=== PATIENT | female | born 1995 | race Caucasian/White ===

== ENCOUNTER 2024-02-18 21:23 | Outpatient (CLI) | payer OTHER ==
[~2024-02-18] VITALS: Ht 165.1 cm; Wt 56.4 kg
[~2024-02-18 21:23] MED LIST: NATURAL IRON65 MG PO; PRENATAL MVI PO
--- NOTE | 2024-02-18 21:45 | NUR ---
2129: PT ARRIVES VIA WHEELCHAIR, ACCOMPANIED BY STAFF. INSTRUCTED TO CHANGE INTO GOWN. 2139: RN AT THE BEDSIDE, G6 L1, 26.[address] SILVESTRE, HERE FOR CTX THAT HAVE BECOME EVERY 10 MINUTES PER THE PT AT HOME. SHE DOES REPORT SHE HAS BEEN HAVING CTX IRREGULARLY AND THAT COME AND GO OVER THE LAST COUPLE OF WEEKS. SHE IS ALSO HAVING A LOT OF DISCHARGE AND FLUID LEAKING WELL, BUT SHE ONLY NOTICES IT WHEN SHE IS ACTIVE. PT DENIES ANY VAGINAL BLEEDING, REPORTS GOOD MOVEMENT AND DENIES ANY OTHER COMPLICATIONS WITH THIS PREGANCY. PT DOES HAVE A HX OF SROM AND DELIVERY AT 32 WEEKS WITH HER FIRST . SVE CL/TH/HIGH.
[2024-02-18 22:00] VITALS: BP 96/56; PULSE 74; TEMP 97.9
[2024-02-18] MEDS ORDERED: LR 1,000 ML IV PRN (22:15)
[2024-02-18 22:30] VITALS: BP 104/57; PULSE 74
== END 2024-02-18 22:40 | disposition home or self-care (01) ==
LOC: LDRO 21:23
DX: O26.892 Other specified pregnancy related conditions, second trimester (principal); E75.5 Other lipid storage disorders; Z3A.26 26 weeks gestation of pregnancy

== ENCOUNTER 2024-03-01 17:06 | Outpatient (CLI) | payer OTHER ==
[~2024-03-01] VITALS: Ht 157.5 cm; Wt 59.1 kg
--- NOTE | 2024-03-01 17:10 | NUR ---
19/[address] SILVESTRE AMBULATES ONTO UNIT WITH COMPLAINTS OF CONTRACTIONS. PT. STATES THEY STARTED AROUND 11 AM THIS MORNING AND ARE ABOUT EVERY 10 MINUTES APART. PT. DENIES LEAKING OF FLUIDS AND VAGINAL BLEEDING. PT. CONFIRMS MOVEMENT.
[2024-03-01] MEDS ORDERED: LR 1,000 ML IV PRN (17:30)
[2024-03-01 17:45] VITALS: BP 116/75; PULSE 96
[2024-03-01 17:45] LABS: COLLECTION METHOD CLEAN CATCH
[2024-03-01] MEDS ORDERED: Acetaminophen 500 MG TAB PO PRN (17:45)
[2024-03-01 17:51] LABS: PH 6.5 (5.0-8.5); URINE APPEARANCE CLOUDY (CLEAR/HAZY); URINE BLOOD NEGATIVE (NEGATIVE); URINE COLOR YELLOW (YELLOW); URINE GLUCOSE NEGATIVE (NEGATIVE); URINE KETONE NEGATIVE (NEGATIVE); URINE NITRATE NEGATIVE (NEGATIVE); URINE PROTEIN(semi-quant) NEGATIVE (NEGATIVE); URINE UROBILINOGEN 0.2 E.U/dL (0.2-1.0)
[2024-03-01 18:00] VITALS: BP 103/60; PULSE 85; TEMP 98.6
--- NOTE | 2024-03-01 18:10 | NUR ---
1809- RECIEVED REPORT. CARE ASSUMED. 1819- RN AT BESIDE RECHECKED CERVIX, SVE BY [place] FT/50/-3. PT REPORTS CTX FEEL LIKE LIGHT PERIOD CRAMPS. 1840- DR. JONES CALLED, SEE PHYSCIAN NOTIFICATION. 1899- PT GIVEN DISCHARGE INSTRUCTIONS AND VERBALIZED UNDERSTANDING OF INFORMATION. PT AMBULATORY OFF UNIT.
[2024-03-01 18:30] VITALS: BP 103/61; PULSE 90; TEMP 98.6
[2024-03-01 18:42] VITALS: BP 101/61; PULSE 86
== END 2024-03-01 19:00 | disposition home or self-care (01) ==
LOC: LDRO 17:06
PROVIDERS: Obstetrics & Gynecology
DX: O62.9 Abnormality of forces of labor, unspecified (principal); Z3A.27 27 weeks gestation of pregnancy

== ENCOUNTER 2024-04-08 22:08 | Outpatient (CLI) | payer OTHER ==
[~2024-04-08] VITALS: Ht 160 cm; Wt 56.8 kg
--- NOTE | 2024-04-08 22:25 | NUR ---
G6L1 at 33 weeks and 1 day arrives to hospital with complaint of stronger contractions for the last 2 hours. Pt reports history of PPROM with delivery at 32 weeks and has been having contractions off and on with the . Has already received betamethasone and has been dilated to a 1 for about 1 month. Pt denies any leakage of fluid. Reports good movement and denies vaginal bleeding. Pt appears to be uncomfortable with contractions. US and toco explained and applied. Admission assessment started. Vitals obtained. SVE 1-2/50/-3. membranes intact, ballotable.
[2024-04-08 22:30] VITALS: BP 125/77; PULSE 88; TEMP 97.8
[2024-04-08] MEDS ORDERED: LR 1,000 ML IV PRN (22:45)
--- NOTE | 2024-04-08 22:50 | NUR ---
[place] shows irritability with irregular, longer contractions. Pt states she feels the irritability like mild cramps and the stronger contractions are pretty irregular.
[2024-04-08 23:00] VITALS: BP 106/61; PULSE 82
--- NOTE | 2024-04-08 23:00 | NUR ---
18G IV started in left forearm with 1 attempt. Lactated ringers bolus infusing to gravity.
[2024-04-08 23:30] VITALS: BP 113/71; PULSE 89
--- NOTE | 2024-04-09 00:05 | NUR ---
SVE unchanged from previous exam. Pt reports contractions feel less frequent and patient appears to be more comfortable.
[2024-04-09 00:10] VITALS: BP 108/64; PULSE 80
--- NOTE | 2024-04-09 00:25 | NUR ---
Discharge plan reviewed with patient. Strict instructions to return to hospital if contractions worsen or if water breaks, pt verbalized understanding. IV removed from left forearm. Pt seen ambulating off unit in stable condition.
== END 2024-04-09 00:30 | disposition home or self-care (01) ==
LOC: LDRO 22:08
DX: O47.03 False labor before 37 completed weeks of gestation, third trimester (principal); Z3A.33 33 weeks gestation of pregnancy
CPT/HCPCS: J7120

== ENCOUNTER 2024-04-22 21:32 | Outpatient (CLI) | payer OTHER ==
[~2024-04-22] VITALS: Ht 157.5 cm; Wt 57.3 kg
--- NOTE | 2024-04-22 21:40 | NUR ---
2139- PT PRESENTS TO LDR COMPLAINING OF LEAKING FLUID AND CONTRACTIONS, TO ROOM LR5 PER WHEELCHAIR, CHANGED INTO GOWN. 2144- EFM X2 APPLIED. PT REPORTS LEAKING A SMALL GUSH OF CLEAR FLUID AT 2100. STATES SHE HAS BEEN HAVING A LOT OF CRAMPING ALL DAY. ALSO STATES SHE IS HAVING NO VAGINAL BLEEDING AND IS FEELING HER BABY MOVE NORMALLY. PLAN OF CARE FOR SROM AND LABOR CHECK DISCUSSED AND QUESTIONS ANSWERED. PT GIVES CONSENT FOR SVE. 2149- AMNITRACE NEGATIVE WITH NO POOLING OF FLUID. SVE BY THIS NURSE 1-/3 WITH NO FLUID OR BLOOD NOTED WITH EXAM. UPDATED PT THAT WE WILL WATCH HER CONTRACTIONS AND BABY ON THE MONITOR AND RE-EXAMINE HER CERVIX IN AN HOUR. SHE IS AGREEABLE WITH THIS PLAN. SHE HAS A WATER JUG AT BEDSIDE FROM HOME. 2199- NURSING ADMISSION AND HISTORY COMPLETED CHARTED. 2249- NURSE TO BEDSIDE. PT REPORTS THAT SHE HAS HAD "A FEW DOOZIES" BUT MOSTLY CRAMPING. PT REPORTS DRINKING PLENTY OF WATER, NO RECENT INTERCOURSE OR STRENUOUS ACTIVITY. PT STATES SHE IS ON BEDREST AT HOME. 2256- SVE BY THIS NURSE IS UNCHANGED. PLAN OF CARE FOR DISMISSAL DISCUSSED. PT OFF MONITORS FOR DISMISSAL. 2257- DR VENCES CALLED AND UPDATED CHARTED. ORDERS RECEIVED FOR DISMISSAL. 2314- DISMISSAL INSTRUCTIONS GIVEN AND QUESTIONS ANSWERED. PT VERBALIZES UNDERSTANDING AND SIGNS PAPERWORK. PT DISMISSED TO HOME AMBULATORY ACCOMPANIED BY SPOUSE.
[2024-04-22 22:00] VITALS: BP 116/77; PULSE 95; TEMP 97.7
[2024-04-22] MEDS ORDERED: LR 1,000 ML IV PRN (22:00)
== END 2024-04-22 23:15 | disposition home or self-care (01) ==
LOC: LDRO 21:32
DX: O62.9 Abnormality of forces of labor, unspecified (principal); O42.913 Preterm premature rupture of membranes, unspecified as to length of time between rupture and onset of labor, third trimester; Z3A.35 35 weeks gestation of pregnancy

== ENCOUNTER 2024-04-23 09:15 | Outpatient (CLI) | payer OTHER ==
[~2024-04-23] VITALS: Ht 157.5 cm; Wt 57.3 kg
--- NOTE | 2024-04-23 09:19 | NUR ---
PATIENT IS BROUGHT ONTO UNIT BY WHEELCHAIR AND TRANSFERS INDEPENDENTLY TO LABOR ROOM BED. PATIENT DENIES LEAKING OF FLUID OR BLEEDING. PATIENT REPORTS NORMAL MOVEMENT. PATIENT DENIES CTX AND REPORTS THIS PAIN IS DIFFERENT FROM WHAT SHE WAS FEELING LAST NIGHT WHEN SHE CAME IN C/O OF CTX. PATIENT REPORTS THIS IS A CONSTANT PAIN IN LLQ THAT FEELS LIKE SHE WAS KICKED AND THERE IS A BRUISE. PAITIENT IS DISPLAYING SIGNS OF PAIN SUCH ABDOMINAL GUARDING, GRIMANCING, AND CURLING HER TOES. PATIENT REPORTS NAUSEA BUT DENIES EMESIS. PATIENT DENIES PAIN WITH URINATION. PATIENT REPORTS SHE RECENTLY HAD A BOWEL MOVEMENT. PATIENT DENIES BACK PAIN AT THIS TIME. EFM AND TOCO INITIATED.SP02 MONITOR INITIATED.
[2024-04-23 09:45] VITALS: BP 122/73; PULSE 84; TEMP 97.7
[2024-04-23] MEDS ORDERED: NS 1,000 ML IV SCH (09:45)
[2024-04-23] MEDS ORDERED: LR 1,000 ML IV PRN (09:45)
[2024-04-23] MEDS ORDERED: fentaNYL 50 MCG/ML 2 ML VIAL IV ONE (09:45)
[2024-04-23] MEDS ORDERED: Ondansetron 4 MG/2 ML VIAL IV ONE (09:45)
[2024-04-23 10:13] LABS: COLLECTION METHOD CLEAN CATCH
[2024-04-23 10:15] VITALS: BP 121/67; PULSE 98
[2024-04-23] MEDS ORDERED: oxyCODONE/Acetaminophen 5-325 MG TAB PO PRN (10:15)
[2024-04-23 10:16] LABS: PH 6.5 (5.0-8.5); URINE APPEARANCE CLEAR (CLEAR/HAZY); URINE BLOOD NEGATIVE (NEGATIVE); URINE COLOR YELLOW (YELLOW); URINE GLUCOSE NEGATIVE (NEGATIVE); URINE KETONE NEGATIVE (NEGATIVE); URINE NITRATE NEGATIVE (NEGATIVE); URINE PROTEIN(semi-quant) NEGATIVE (NEGATIVE); URINE UROBILINOGEN 0.2 E.U/dL (0.2-1.0)
[2024-04-23 10:17] LABS: HEMOGLOBIN 11.1 g/dl (12.5-16.0); MEAN CELL VOLUME 91 fl (80.0-100.0); MEAN CORPUSCULAR HEMOGLOBIN 31 pg (27-31); MEAN CORPUSCULAR HGB CONC 34 g/dl (33.0-37.0); PLATELET COUNT 113 K/mm3 (130-400); RED BLOOD COUNT 3.59 M/mm3 (4.10-5.30); REDCELL DISTRIBUTION WIDTH-CV 11.9 % (11.5-14.5)
[2024-04-23 10:24] LABS: HEMATOCRIT 32.5 % (37.0-47.0)
--- NOTE | 2024-04-23 10:35 | NUR ---
1035- This RN assumes care of Pt at this time.
[2024-04-23 10:36] LABS: ALBUMIN 2.8 g/dL (3.5-5.0); ALKALINE PHOSPHATASE 125 U/L (40-150); ANION GAP 11 mmol/L (7-16); AST,SGOT 12 U/L (5-34); BILIRUBIN,TOTAL 0.9 mg/dL (0.2-1.2); CALCIUM 8.5 mg/dL (8.4-10.2); CHLORIDE 110 mEq/L (98-107); CREATININE, serum 0.54 mg/dL (0.57-1.11); GLUCOSE 90 mg/dL (70-99); POTASSIUM 3.3 mEq/L (3.5-4.5); SODIUM 138 mEq/L (136-145); TOTAL PROTEIN 6.3 g/dl (6.2-8.1)
[2024-04-23 10:45] VITALS: BP 97/52; PULSE 77
[2024-04-23 10:48] LABS: ALANINE AMINOTRANSFERASE < 6 U/L (0-55); BLOOD UREA NITROGEN < 5 mg/dL (7-19)
[2024-04-23 10:56] LABS: LYMPHOCYTE 30 % (20.0-51.0); NEUTROPHILS 64 % (42.0-75.2)
[2024-04-23 10:57] LABS: PLATELET ESTIMATE DECREASED (NORMAL)
[2024-04-23 11:15] VITALS: BP 97/52; BP 98/55; PULSE 74; PULSE 77
[2024-04-23 11:43] VITALS: BP 99/54; PULSE 71
== END 2024-04-23 11:50 | disposition home or self-care (01) ==
LOC: LDRO 09:15
PROVIDERS: Obstetrics & Gynecology
DX: O26.899 Other specified pregnancy related conditions, unspecified trimester (principal); R10.9 Unspecified abdominal pain; Z3A.00 Weeks of gestation of pregnancy not specified
CPT/HCPCS: J2405; J7030

== ENCOUNTER 2024-04-24 14:34 | Inpatient (IN) | payer OTHER ==
[~2024-04-24] VITALS: Ht 157.5 cm; Wt 59.1 kg
[2024-04-24] VITALS (36 sets, daily range): BP systolic 99–133; BP diastolic 55–77; PULSE 64–103; TEMP 97.8–98.6
--- NOTE | 2024-04-24 14:35 | NUR ---
35/[address] SILVESTRE SENT OVER FROM OFFICE WITH LEAKING OF FLUID AND POSITIVE NITRIZINE TEST IN OFFICE. DR. MATHUR GIVES ORDERS TO DO AN AMNISURE AND SVE. PT AMBULATORY TO UNIT, CHANGES INTO GOWN. PT STATES "WATER BROKE AROUND 0400 THIS MORNING", PT DENIES CONTRACTIONS BUT SOME CRAMPING, PT DENIES VAGINAL BLEEDING. PT. CONFIRMS MOVEMENT.
[2024-04-24] MEDS ORDERED: LR 1,000 ML IV PRN ×2 (14:45→15:45)
[2024-04-24] MEDS ORDERED: LR & Oxytocin 500 ML IV SCH (15:45)
[2024-04-24] MEDS ORDERED: ceFAZolin 2 G in Water For Injection,Sterile 20 ML IV ONE (15:45)
[2024-04-24] MEDS ORDERED: LR 1,000 ML IV SCH (15:45)
[2024-04-24 16:20] LABS: HEMOGLOBIN 10.9 g/dl (12.5-16.0); MEAN CELL VOLUME 91 fl (80.0-100.0); MEAN CORPUSCULAR HEMOGLOBIN 31 pg (27-31); MEAN CORPUSCULAR HGB CONC 34 g/dl (33.0-37.0); MEAN PLATELET VOLUME 13.9 fl (7.4-10.4); PLATELET COUNT 103 K/mm3 (130-400); RED BLOOD COUNT 3.53 M/mm3 (4.10-5.30); REDCELL DISTRIBUTION WIDTH-CV 12.1 % (11.5-14.5)
[2024-04-24 16:26] LABS: HEMATOCRIT 32.1 % (37.0-47.0)
--- NOTE | 2024-04-24 16:57 | NUR ---
DR. MATHUR AT BEDSIDE, EXPLAINING POC TO PT. DR. MATHUR PERFORMS ULTRASOUND VERIFIES BABY IS VERTEX
--- NOTE | 2024-04-24 17:12 | NUR ---
PT. REQUESTS EPIDURAL, LR BOLUS STARTED, PULSE OX APPLIED. GARY DELGADO AT BEDSIDE FOR PLACEMENT. PT SITTING ON EDGE OF BED FOR EPIDURAL PLACEMENT. SINGLE SHOT ADMINISTERED AT [address] WORKER[address] PT TOLERATES PROCEDURE WELL. EPIDURAL HOOKED UP TO PUMP PER GARY DRIVE WORKER.
[2024-04-24] MEDS ORDERED: LR 500 ML IV PRN (17:15)
[2024-04-24] MEDS ORDERED: ePHEDrine 50 MG/10 ML VIAL IV PRN (17:15)
[2024-04-24] MEDS ORDERED: diphenhydrAMINE 25 MG CAP PO PRN (17:15)
[2024-04-24] MEDS ORDERED: Naloxone 0.4 MG/ML VIAL IV PRN (17:15)
[2024-04-24] MEDS ORDERED: Ondansetron 4 MG/2 ML VIAL IV PRN (17:15)
[2024-04-24] MEDS ORDERED: diphenhydrAMINE 50 MG/ML 1 ML VIAL IV PRN (17:15)
[2024-04-24] MEDS ORDERED: LR 1,000 ML IV ONE (17:15)
[2024-04-24] MEDS ORDERED: ROPivacaine PF 0.2% 200 ML IV ONE (17:18)
--- NOTE | 2024-04-24 18:20 | NUR ---
Note uterine tachysystole. Patient reports only feeling contractions every 5 minutes prior to epidural, though monitor strip appears she has been cheng every 1.5 minutes for quite some time. Will attempt to bump rate up once prior to decreasing, as noted, Category I strip remains.
--- NOTE | 2024-04-24 18:32 | NUR ---
Continued uterine tachysystole noted. Rate of pitocin cut in half to 7mU/min at this time. LR bolus begun.
--- NOTE | 2024-04-24 18:44 | NUR ---
Repositioned left lateral with peanut ball. Note 500mL LR bolus completed. Contractions beginning to space out.
--- NOTE | 2024-04-24 19:06 | NUR ---
Repositioned right lateral with peanut ball.
--- NOTE | 2024-04-24 19:15 | NUR ---
[place] repositioned.
--- NOTE | 2024-04-24 20:00 | NUR ---
Switched to pediatric BP cuff.
--- NOTE | 2024-04-24 20:00 | NUR ---
Discussed with patient and spouse 's plan to come in and break forebag of membranes. Verbalizes understanding.
--- NOTE | 2024-04-24 20:17 | NUR ---
here to break forebag of membranes.
--- NOTE | 2024-04-24 20:56 | NUR ---
Repositioned right lateral with peanut ball.
--- NOTE | 2024-04-24 21:10 | NUR ---
Calls out to nurse's station with c/o rectal pressure. Repeat SVE /-1.
--- NOTE | 2024-04-24 21:13 | NUR ---
Repositioned knee chest.
--- NOTE | 2024-04-24 21:38 | NUR ---
Repositioned left lateral with right leg up in stirrup.
--- NOTE | 2024-04-24 21:58 | NUR ---
Repositioned right lateral with left leg up in stirrup. Patient reports vaginal pressure that comes and goes.
--- NOTE | 2024-04-24 22:25 | NUR ---
Repositioned jazmyne's following repeat SVE.
--- NOTE | 2024-04-24 23:20 | NUR ---
Repositioned right lateral, flying cowgirl with peanut ball following repeat SVE after patient c/o increased pain in vagina and lower back. Note patient has just pushed PCEA button.
[2024-04-24] MEDS ORDERED: ceFAZolin 1 G in Water For Injection,Sterile 10 ML IV SCH (23:31)
--- NOTE | 2024-04-24 23:47 | NUR ---
Repositioned left lateral flying cowgirl with peanut ball. Note tachycardia. Temp 97.8 orally at this time.
[2024-04-25] VITALS (19 sets, daily range): BP systolic 106–159; BP diastolic 56–78; PULSE 65–85; TEMP 97.4–98.6
--- NOTE | 2024-04-25 | NUR ---
Repeat SVE with patient c/o rectal pressure. Repositioned back into left lateral flying cowgirl following.
--- NOTE | 2024-04-25 00:27 | NUR ---
Repositioned semi-prone right side.
[2024-04-25] MEDS ORDERED: Magnes Hydrox (MOM) 80 MG/ML 30 ML CUP PO PRN (01:15)
[2024-04-25] MEDS ORDERED: Loratadine 10 MG TAB PO PRN (01:15)
[2024-04-25] MEDS ORDERED: Tdap Vaccine 0.5 ML SYRINGE IM SCH (01:45)
[2024-04-25] MEDS ORDERED: Ibuprofen 600 MG TAB PO SCH (01:45)
[2024-04-25] MEDS ORDERED: Measles/Mumps/Rubella Virus Vaccine Live w Diluent 0.5 ML VIAL SQ SCH (01:45)
[2024-04-25] MEDS ORDERED: Mag/Al Hydrox/Simeth Susp 30 ML CUP PO PRN (01:45)
[2024-04-25] MEDS ORDERED: Acetaminophen 500 MG TAB PO SCH (01:45)
[2024-04-25] MEDS ORDERED: Naloxone 0.4 MG/ML VIAL IV PRN (01:45)
[2024-04-25] MEDS ORDERED: Witch Hazel 50% Pads Bulk TUB TP PRN (01:45)
[2024-04-25] MEDS ORDERED: Phenylephrine/Mineral Oil/Petrolatum 57 GM TUBE RC PRN (01:45)
[2024-04-25] MEDS ORDERED: oxyCODONE 5 MG TAB PO PRN (01:45)
--- NOTE | 2024-04-25 06:20 | NUR ---
REPORT RCVD FROM NAMRATA NICOLAS. PT IS IN ROOM RESTING. PER REPORT, PT HAD DELIVERED AT 0106 OVER AN INTACT PERINEUM. IN CARE OF NURSERY RN. PT MOVED INTO POSTPRTUM ROOM, AND THIS RN ASSUMED CARE OF PATIENT AT 0620.
[2024-04-25] MEDS ORDERED: MOTRIN 800800 MG/TAB PO (06:39)
[2024-04-25] MEDS ORDERED: Sennosides/Docusate 8.6-50 MG TAB PO SCH (08:00)
[2024-04-25] MEDS ORDERED: Prenatal Vitamins/Iron/FA TAB PO SCH (09:00)
--- NOTE | 2024-04-25 10:00 | NUR ---
Initial visit attempt: Patient (Indisposed), Clothes Designer left card offering congratulations and God's blessings for the of her son an information regarding the availability of Spiritual Care at our hospital.
[2024-04-25] MEDS ORDERED: traZODone 50 MG TAB PO PRN (21:00)
[2024-04-26 05:21] LABS: HEMOGLOBIN 10.5 g/dl (12.5-16.0); MEAN CELL VOLUME 92 fl (80.0-100.0); MEAN CORPUSCULAR HEMOGLOBIN 30 pg (27-31); MEAN CORPUSCULAR HGB CONC 33 g/dl (33.0-37.0); PLATELET COUNT 107 K/mm3 (130-400); RED BLOOD COUNT 3.46 M/mm3 (4.10-5.30); REDCELL DISTRIBUTION WIDTH-CV 12.3 % (11.5-14.5)
[2024-04-26 05:27] LABS: HEMATOCRIT 31.8 % (37.0-47.0)
[2024-04-26 05:41] LABS: EOSINOPHIL 1 % (0-4); LYMPHOCYTE 26 % (20.0-51.0); NEUTROPHILS 63 % (42.0-75.2); PLATELET ESTIMATE DECREASED (NORMAL)
[2024-04-26 07:29] VITALS: BP 106/77; PULSE 99; TEMP 97.7
--- NOTE | 2024-04-26 11:00 | NUR ---
REPORT GIVEN TO PCR.HOLIDAY, PT VS STABLE AND AWAKE AND ALERT.
--- NOTE | 2024-04-26 15:00 | NUR ---
DISCHARGE INSTRUCTIONS REVIEWED WITH PT EMPHASIZING SELF-CARE, PAIN MANAGEMENT, FOLLOW-UP APPT, AND BOARDER STATUS CHANGES. QUESTIONS INVITED AND ANSWERED. PT VERBALIZES UNDERSTANDING. BOARDER STATUS COMPLETE.
== END 2024-04-26 15:00 | disposition home or self-care (01) | DRG 560 ==
LOC: LDRO 14:34 → LDR 14:35 → LDRO 16:03 → OB 16:06 → LDR 16:06 → OB 04-25 03:50
PROVIDERS: Obstetrics & Gynecology; ADMIT Obstetrics & Gynecology
PROC: 10E0XZZ Delivery of Products of Conception, External Approach (ICD-10-PCS; principal; 2024-04-25)
PROC: 3E033VJ Introduction of Other Hormone into Peripheral Vein, Percutaneous Approach (ICD-10-PCS; 2024-04-25)
DX: O42.913 Preterm premature rupture of membranes, unspecified as to length of time between rupture and onset of labor, third trimester (principal); O99.12 Other diseases of the blood and blood-forming organs and certain disorders involving the immune mechanism complicating childbirth; Z37.0 Single live birth; Z3A.35 35 weeks gestation of pregnancy; Z88.0 Allergy status to penicillin; D69.6 Thrombocytopenia, unspecified; O69.89X0 Labor and delivery complicated by other cord complications, not applicable or unspecified
CPT/HCPCS: J0688; J0690; J2590; J2795; J7120